=== PATIENT | male | born 1995 | race Hispanic/Latino ===

== ENCOUNTER 2020-10-21 09:44 | Emergency (ER) | payer OTHER, SELFPAY ==
[2020-10-21 09:56] VITALS: BP 133/66; PULSE 84; RESP 16; TEMP 36.8; O2SAT 96; BMI 32.1
--- NOTE | 2020-10-21 10:15 | ED_ITS ---
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 He states that his knee twisted and he buckled. Since then he has had discomfort in swelling. Has been using ibuprofen and ice and elevation. Review of Systems Constitutional Constitutional: Denies fever(s) Musculoskeletal Musculoskeletal: Denies tingling Comments: Right knee pain and swelling Integumentary/Breasts Skin/Breast: Denies lesions and Denies rash Neurologic Neurologic: Denies tingling Hematologic/Lymphatic Hematologic/Lymphatic: Denies easy bleeding and Denies easy bruising Allergic/Immunologic Allergic/Immunologic: Denies urticaria Patient History Medical History Healthy adult Social History Smoking Status: Never smoker Smoking Status: Never smoker alcohol intake frequency: 0-2 drinks per day Substance Use Type: does not use Exam Initial Vital Signs Initial Vital Signs: Vital Signs Temperature 98.3 F 10/21/20 09:56 Pulse Rate 84 10/21/20 09:56 Respiratory Rate 16 10/21/20 09:56 Blood Pressure 133/66 10/21/20 09:56 Pulse Oximetry 96 10/21/20 09:56 Const General: cooperative and comfortable Resp Effort & Inspection: normal respiratory effort Cardio Pulses: dorsalis pedis present on the right Skin Lesions: no lesions Rashes: no rashes Neuro Sensory Exam: no sensory deficits noted Extrem Other: Patient does have a right knee effusion. He can do a straight leg raise. No tenderness to palpation over the hamstring tendons, patella tendon, quadriceps tendon, does have tenderness along the medial and lateral joint line. Difficult to obtain a good ACL MCL PCL and LCL exam secondary to his discomfort however the MCL and ACL do seem to have some laxity involved compared with the left. Procedures Orthopedic Splinting/Casting Injury #1: Side: right Lower Extremity Injury Location: knee Lower Extremity Immobilizer: Ramiro wrap Other Orthopedic Equipment: crutches Post splinting neuro exam: intact Post splinting vascular exam: intact Placed by: Nursing Course Orders Ordered: ED Orders 10/21/20 10:16 XR knee RT 3V Stat Vital Signs Vital signs: Vital Signs - 8 hr 10/21/20 09:56 Temperature 98.3 F Pulse Rate 84 Respiratory Rate 16 Blood Pressure 133/66 Pulse Oximetry 96 [facility] - Extremity Injury (Lower) Imaging Data Extremity x-ray #1: Radiologist's Impression: [address] [id number] ReportSigned Patient: Fernando Lawton DMR#: [id number]: [id number]:[id number]/Sex: 25 / MDate of Service: 10/21/20Loc: EDAccession Number: [id number] Procedure: XR knee RT 3V Ordering Provider: Jared Alston D.O. PROCEDURE: XR KNEE RT 3V INDICATIONS: pain after twisting injury yesterday TECHNIQUE: 3 views of the knee were acquired. COMPARISON: None. FINDINGS: Bones: No fractures or dislocations. No patellar subluxation. No suspicious bony lesions. Soft tissues: No joint effusion. No suspicious soft tissue calcifications. IMPRESSION: No acute right knee fracture or dislocation. No significant joint effusion. Dictated by: Maurice Valdez M.D. on 10/21/2020 at 9:34 Approved by: Maurice Valdez M.D. on 10/21/2020 at 9:41 [facility] Narrative Medical decision making narrative: No fractures on the x-ray. Difficult to obtain a good exam of his ligaments given his discomfort. Will place him in a Ramiro bandage and also crutches for comfort. Will have him follow-up with his medical department for further evaluation and treatment. Discharge Plan Departure Patient Disposition: Home Clinical Impression: Injury of knee, right Qualifiers: Encounter type: initial encounter Qualified Code(s): S89.91XA - Unspecified injury of right lower leg, initial encounter Instructions: How to Use Crutches, How To Perform RICE (Rest, Ice, Compress, Elevate) Activity Restrictions/Additional Instructions: Use the crutches as needed for your comfort. Also recommend that it you elevate and ice your knee. Use the Ramiro bandage as needed for comfort. Contact your medical department for further evaluation. Stand Alone Forms: Work Release Note
[2020-10-21 11:36] VITALS: BP 122/61; PULSE 71; RESP 18; O2SAT 100
== END 2020-10-21 11:45 | disposition home or self-care (01) ==
PROVIDERS: Emergency Provider Emergency Medicine
DX: S89.91XA Unspecified injury of right lower leg, initial encounter (principal); W22.8XXA Striking against or struck by other objects, initial encounter
CPT/HCPCS: 73562; 99283